=== PATIENT | female | born 1945 | race Hispanic/Latino ===

== ENCOUNTER 2017-05-04 09:57 | Inpatient (IN) | payer MEDICARE, BC ==
[2017-05-04 10:42] VITALS: BMI 26.0
--- NOTE | 2017-05-04 10:42 | ED PDOC ---
Arrival/HPI - General Historian: Patient - History of Present Illness Time/Duration: > week, < month Symptom Onset: Gradual Symptom Course: Unchanged Context: Exertion <Bernardino Mcnair - Last Filed: 05/04/17 11:37> <Oh Peters - Last Filed: 05/04/17 12:58> - General Chief Complaint: Shortness Of Breath Time Seen by Provider: 05/04/17 10:02 - History of Present Illness Narrative History of Present Illness (Text): 05/04/17 10:37 patient is a 67F with a past medical history of an DC in 2016 where there was a stent placed in the LAD. She comes with a CC of exertional dyspnea for 2 weeks. States that she can only walk one block before becoming SOB requiring her to stop and rest. She states she is also complaining of R. thigh pain when walking that is resolved with rest. She denies any chest pain. No radiation. The SOB has been constant for 2 weeks. No nausea or vomiting, No diaphoresis. (Bernardino Mcnair) Past Medical History - Cardiac Hx Cardiac Disorders: Yes Hx DC: Yes Hx Pacemaker: No - Pulmonary Hx Respiratory Disorders: No - Neurological Hx Neurological Disorder: No Hx Paralysis: No - HEENT Hx HEENT Disorder: No - Renal Hx Renal Disorder: No - Endocrine/Metabolic Hx Endocrine Disorders: Yes Other/Comment: Thyroid cancer 30 years ago - Hematological/Oncological Hx Blood Disorders: Yes Hx Anemia: Yes Hx Blood Transfusions: Yes Hx Blood Transfusion Reaction: No Hx Shingles: Yes (04/2017) - Integumentary Hx Dermatological Disorder: No - Musculoskeletal/Rheumatological Hx Musculoskeletal Disorders: No - Gastrointestinal Hx Gastrointestinal Disorders: No - Genitourinary/Gynecological Hx Genitourinary Disorders: No - Psychiatric Hx Psychophysiologic Disorder: No Hx Emotional Abuse: No Hx Physical Abuse: No Hx Substance Use: No - Surgical History Hx Cardiac Catheterization: Yes Hx Coronary Stent: Yes Hx Thyroidectomy: Yes - Anesthesia Hx Anesthesia Reactions: No Hx Malignant Hyperthermia: No - Suicidal Assessment Feels Threatened In Home Enviroment: No <Bernardino Mcnair - Last Filed: 05/04/17 11:37> Family/Social History Family/Social History: Unknown Family HX Smoking Status: Former Smoker Hx Alcohol Use: Yes (WINE SOCIAL) Hx Substance Use: No <Bernardino Mcnair - Last Filed: 05/04/17 11:37> Allergies/Home Meds <Bernardino Mcnair - Last Filed: 05/04/17 11:37> <DaxanoelleOh - Last Filed: 05/04/17 12:58> Allergies/Adverse Reactions: Allergies No Known Allergies Allergy (Verified 05/04/17 10:18) Home Medications: Home Meds Medication Instructions Recorded Confirmed Levothyroxine [Synthroid] 125 mcg PO QAM 01/03/16 05/04/17 Pantoprazole Sodium [Protonix] 40 mg PO QAM 01/14/16 05/04/17 Docusate [Colace] 100 mg PO BID 01/20/16 05/04/17 Prasugrel [Effient] 10 mg PO DAILY 01/20/16 05/04/17 Review of Systems - Review of Systems Constitutional: Normal Eyes: Normal ENT: Normal Respiratory: SOB. absent: Cough Cardiovascular: absent: Chest Pain, Palpitations, Syncope Gastrointestinal: absent: Abdominal Pain, Diarrhea, Nausea, Vomiting Genitourinary Female: Normal Musculoskeletal: Normal Skin: Normal Neurological: Normal Endocrine: Normal Hemo/Lymphatic: Normal Psychiatric: Normal <IvannaBernardino moore - Last Filed: 05/04/17 11:37> Physical Exam Temperature: Afebrile Blood Pressure: Hypertensive Pulse: Regular Respiratory Rate: Normal Appearance: Positive for: Well-Appearing, Non-Toxic, Comfortable Pain Distress: None Mental Status: Positive for: Alert and Oriented X 3 - Systems Exam Head: Present: Atraumatic, Normocephalic Pupils: Present: PERRL Extroacular Muscles: Present: EOMI Conjunctiva: Present: Normal Mouth: Present: Moist Mucous Membranes Neck: Present: Normal Range of Motion Respiratory/Chest: Present: Clear to Auscultation, Good Air Exchange. No: Respiratory Distress, Accessory Muscle Use Cardiovascular: Present: Regular Rate and Rhythm, Murmurs. No: Normal S1, S2 Abdomen: Present: Tenderness, Normal Bowel Sounds. No: Distention, Peritoneal Signs Upper Extremity: Present: Normal Inspection, Cyanosis. No: Edema Lower Extremity: Present: Normal Inspection. No: Edema Neurological: Present: GCS=15, CN II-XII Intact, Speech Normal Skin: Present: Warm, Dry, Normal Color. No: Rashes Psychiatric: Present: Alert, Oriented x 3, Normal Insight, Normal Concentration <Bernardino Mcnair - Last Filed: 05/04/17 11:37> Vital Signs Temp Resp BP 05/04/17 10:25 18 05/04/17 10:19 97.7 F 18 181/79 H Medical Decision Making <Bernardino Mcnair - Last Filed: 05/04/17 11:37> - Lab Interpretations I have reviewed the lab results: Yes - RAD Interpretation Keno Writer: ED Physician (CXR no acute) - EKG Interpretation Interpreted by ED Physician: Yes Type: 12 lead EKG (NSR) <Oh Peters - Last Filed: 05/04/17 12:58> ED Course and Treatment: 05/04/17 10:45 Patient complaining of SOB and leg pain. No chest pain - cbc, cmp - US of LE - EKG 05/04/17 11:38 US LE negative Anemic @ 6.6 - transfuse [address] Patel, Admit. Consult GI, Pulm, and Cards (Luis MigueldianneBernardino moore) - Lab Interpretations Lab Results: 05/04/17 10:40 05/04/17 10:40 Lab Results 05/04/17 11:35: Blood Type Pending, Antibody Screen Pending, Crossmatch See Detail, BBK History Checked Patient has bt 05/04/17 10:40: Sodium 144, Potassium 4.2, Chloride 109 H, Carbon Dioxide 21, Anion Gap 17, BUN 19, Creatinine 1.2, Est GFR ( Amer) 53, Est GFR (Non- Af Amer) 44, Random Glucose 119 H, Calcium 9.5, Magnesium 2.0, Total Bilirubin 0.4, AST 27, ALT 19, Alkaline Phosphatase 53, Lactate Dehydrogenase 579, Total Creatine Kinase 65, Troponin I 0.03 D, NT-Pro-B Natriuret Pep 1650 H, Total Protein 7.5, Albumin 4.3, Globulin 3.2, Albumin/Globulin Ratio 1.4 05/04/17 10:40: WBC 7.5, RBC 2.10 L, Hgb 6.6 L*, Hct 22.3 L, MCV 106.2 H, MCH 31.4, MCHC 29.6 L, RDW 22.6 H, Plt Count 267, MPV 10.1, Gran % 72.2 H, Lymph % ( Auto) 14.4 L, [place] % (Auto) 5.2, Eos % (Auto) 7.7 H, Baso % (Auto) 0.5, Gran # 5.40, Lymph # (Auto) 1.1 L, [place] # (Auto) 0.4, Eos # (Auto) 0.6, Baso # (Auto) 0.04 - RAD Interpretation Radiology Orders: 05/04/17 10:35 DUPLEX LOWER EXTRM VEIN BILAT [US] Stat 05/04/17 11:10 CHEST PORTABLE [RAD] Stat - Medication Orders Current Medication Orders: Atorvastatin Calcium (Lipitor) 20 mg PO DIN DL Carvedilol (Coreg) 3.125 mg PO BID DL Ferrous Sulfate (Feosol) 324 mg PO BID DL Levothyroxine Sodium (Synthroid) 125 mcg PO QAM DL Pantoprazole Sodium (Protonix Ec Tab) 40 mg PO QAM DL Prasugrel (Effient) 10 mg PO DAILY DL - PA / PARAFFINER / Resident Statement MD/DO has reviewed & agrees with the documentation as recorded. / has examined the patient and agrees with the treatment plan. <Bernardino Mcnair - Last Filed: 05/04/17 11:37> Disposition/Present on Arrival - Present on Arrival Any Indicators Present on Arrival: No History of DVT/PE: No History of Uncontrolled Diabetes: No Urinary Catheter: No History of Decub. Ulcer: No History Surgical Site Infection Following: None - Disposition Have Diagnosis and Disposition been Completed?: Yes Disposition Time: 11:37 Patient Plan: Admission <Bernardino Mcnair - Last Filed: 05/04/17 11:37> <Oh Peters - Last Filed: 05/04/17 12:58> - Disposition Diagnosis: Anemia, Dyspnea Disposition: HOSPITALIZED Condition: GUARDED Forms: [employer] (Indonesian)
[2017-05-04 10:46] LABS: BASO # 0.04 K/mm3 (0.0-2.0); BASO % 0.5 % (0.0-3.0); EOS # 0.6 (0.0-0.7); EOS % 7.7 % (1.5-5.0); GRAN # 5.4 (1.4-6.5); GRAN % 72.2 % (50.0-68.0); LYMPH # 1.1 (1.2-3.4); LYMPH % 14.4 % (22.0-35.0); MEAN CELL VOLUME 106.2 fl (80.0-105.0); MEAN CORPUSCULAR HEMOGLOBIN 31.4 pg (25.0-35.0); MEAN CORPUSCULAR HGB CONC 29.6 g/dl (31.0-37.0); MEAN PLATELET VOLUME 10.1 fl (7.0-11.0); MONO # 0.4 (0.1-0.6); MONO % 5.2 % (1.0-6.0); RBC 2.1 10^6/uL (3.5-6.1); RED CELL DISTRIBUTION WIDTH 22.6 % (11.5-14.5); WHITE BLOOD COUNT 7.5 10^3/ul (4.5-11.0)
[2017-05-04 10:52] LABS: HEMOGLOBIN 6.6 g/dL (12.0-16.0)
[2017-05-04 10:56] LABS: ALB/GLOB RATIO 1.4 (1.1-1.8); ALBUMIN 4.3 g/dL (3.0-4.8); CALCIUM 9.5 mg/dL (8.4-10.5)
[2017-05-04 11:08] LABS: TROPONIN I 0.03 ng/mL
--- NOTE | 2017-05-04 13:52 | RAD ---
HISTORY: 71yoF, sob COMPARISON: 01/26/2016 FINDINGS: LUNGS: No active pulmonary disease. PLEURA: No significant pleural effusion identified, no pneumothorax apparent. CARDIOVASCULAR: Cardiomegaly. No evidence of acute, significant cardiovascular disease. OSSEOUS STRUCTURES: No significant abnormalities. VISUALIZED UPPER ABDOMEN: Normal. OTHER FINDINGS: None. IMPRESSION: No active disease. No significant interval change compared to the prior examination(s).
[2017-05-04] MEDS ORDERED: Pneumococcal 23-Valent Vaccine IM ONE (16:53)
[2017-05-04] MEDS ORDERED: Influenza Vaccine 60 mcg/0.5 mL SYR (4YR UP) IM ONE (16:53)
[2017-05-04 17:27] LABS: ARTERIAL BLOOD GAS HCO3 22.2 mmol/L (21-28); ARTERIAL BLOOD GAS HEMOGLOBIN 6.9 g/dL (11.7-17.4); ARTERIAL BLOOD GAS O2 CAPACITY 9.7 mL/dl (16-24); ARTERIAL BLOOD GAS O2 CONTENT 9.6 ML/dl (15-23); ARTERIAL BLOOD GAS O2 SAT 98.6 % (95-98); ARTERIAL BLOOD GAS PCO2 32 mm/Hg (35-45); ARTERIAL BLOOD GAS PH 7.45 (7.35-7.45); ARTERIAL BLOOD GAS TCO2 23.2 mmol.L (22-28)
[2017-05-04] MEDS ORDERED: Morphine 2 mg/ml ISec IVP PRN ×2 (18:32→18:37)
[2017-05-04] MEDS: Morphine 4 mg/ml ISec IVP PRN (18:58)
--- NOTE | 2017-05-04 19:24 | CARD ---
APPROVED REPORT EKG Measurement Heart [id number] MA [id number] <Conclusion> Normal sinus rhythm Minimal voltage criteria for LVH, may be normal variant Inferior infarct, age undetermined Abnormal ECG
--- NOTE | 2017-05-04 20:07 | US ---
HISTORY: Leg pain and swelling. Evaluate for DVT PHYSICIAN(S): Quentin Lira MD. TECHNIQUE: Duplex sonography and color-flow Doppler with graded compression were used to evaluate the deep venous systems of both lower extremities. FINDINGS: The visualized deep venous systems of both lower extremities are sonographically normal and compressible. Normal wave forms and augmentation are seen. There is no sonographic evidence for deep venous thrombosis in the visualized segments of both lower extremities. There is a lobulated 3.4 x 3.9 cm fluid collection in the right popliteal fossa, consistent with a Bethea's cyst. IMPRESSION: No sonographic evidence for deep venous thrombosis in the visualized segments of both lower extremities.
[2017-05-05] MEDS: Morphine 4 mg/ml ISec IVP PRN ×2 (01:17→06:55)
--- NOTE | 2017-05-05 01:19 | CON ---
DATE: 05/04/2017 CARDIOLOGY CONSULTATION HISTORY OF PRESENT ILLNESS: The patient is a 71-year-old woman who presents with 2 weeks of exertional shortness of breath. She was found to have a hemoglobin of 6.7. PAST MEDICAL HISTORY: Includes documented anemia in the past where her workup was included an endoscopy and colonoscopy revealed no source of bleeding. She underwent PTCA and stent of a 90% LAD in January of last year. Her past medical history also includes an old inferior wall WA documented by an occluded RCA. In addition, her cardiac risk factors includes hypercholesterolemia as well as COPD. She has stopped smoking since her angioplasty. SOCIAL HISTORY: As above. REVIEW OF SYSTEMS: 14-point review of systems was reviewed. No angina. Positive exertional shortness of breath. Negative edema. Negative dark stools. Negative bright red blood per rectum. No nausea, no vomiting. PHYSICAL EXAMINATION: VITAL SIGNS: Stable. Blood pressure 145/82, heart rates in the 60s. NECK: Negative JVD. LUNGS: Without rales. HEART: S1, S2. EXTREMITIES: Without edema. EKG shows normal sinus rhythm with an old inferior wall WA. LABORATORY DATA: Hemoglobin is 6.6, white count is normal. BUN and creatinine unremarkable. ProBNP is 1650. IMPRESSION: 1. Marked anemia. 2. Need to rule out gastrointestinal bleed. 3. Exertional dyspnea. 4. History of percutaneous transluminal coronary angioplasty and 90% LAD stenoses with a drug-eluting stent in January of last year. 5. Old inferior wall myocardial infarction. 6. Hypertension. 7. Chronic obstructive pulmonary disease. Given these findings, the patient will need to be transfused, which has been ordered. GI consult has been ordered. We will need to follow her hemoglobin. Quentin Wood MD
--- NOTE | 2017-05-05 04:06 | HP ---
HISTORY OF PRESENT ILLNESS: I was called to the Emergency Room to visit her. She came to the Emergency Room with exertional dyspnea for 2 weeks. She can only walk a block before she became short of breath, and she had to stop. She was not feeling well. PAST MEDICAL HISTORY: She has a past medical history of an OR in 2016, had a stent placed in the LAD. She also has history of thyroid cancer 30 years ago, anemia, she had transfusions in the past. She had shingles, she has it again now, I will put her on Valtrex. She has coronary stent, thyroidectomy surgery. FAMILY HISTORY: She has hypertension in the family. SOCIAL HISTORY: Former smoker. She still drinks wine. No drug abuse. ALLERGIES: NO KNOWN DRUG ALLERGIES. MEDICATIONS: She is on Synthroid, Protonix, Colace, and Effient. REVIEW OF SYSTEMS: No acute vision or hearing changes. No sore throat. She is short of breath. No cough. No chest pain or palpitations or syncope. No abdominal pain, nausea, vomiting, constipation, or diarrhea. No skin issues. No rashes or ulcers that she knows of. Little bit nervous. No sweating. No tremors. PHYSICAL EXAMINATION VITAL SIGNS: She has a 97.7 temperature, 18 pulse, 181/79 blood pressure. GENERAL: She is well appearing, comfortable at rest, but cannot walk more than 4 to 5 steps without becoming short of breath. She is alert and oriented x3. HEENT: Head is atraumatic, normocephalic. Extraocular muscles are intact. Pupils are equal and reactive to light and accommodation. Throat is moist. NECK: Supple. HEART: Regular rate. Normal S1 and S2. LUNGS: Clear to auscultation bilaterally. No wheezes, rhonchi, or rales. ABDOMEN: Soft, nontender. No guarding, no rebound, no CVA tenderness. EXTREMITIES: No leg edema. NEUROLOGIC: GCS is 15. Cranial nerves II through XII grossly intact. Normal speech. SKIN: Warm and dry. No apparent rashes or ulcers appreciated. LYMPHATICS: Thyroid is not there, she had a thyroidectomy. No palpable appreciable lymphadenopathy. LABORATORY DATA: She has multiple tests done. She has 144 sodium, potassium 4.2, BUN , creatinine 1.2, GFR is 44, sugar is 119, calcium is 9.5, magnesium 2, total bili is 0.4, AST is 27, ALT is 19, .alkaline phosphatase is 53. Lactate dehydrogenase is 579, total creatine kinase is 65. Troponin I is 0.03. BNP is 1650. Total protein is 7.5. White count 7.5 , hemoglobin 6.6, hematocrit 22.3, platelets are 267. She has a chest x-ray with no acute disease. ASSESSMENT AND PLAN: We are going to transfuse 2 units of packed red blood cells, with Lasix 40 IV in between. She also has consults with Pulmonary, Cardiology, and GI. Has occult blood pending. She is n.p.o. Order physical therapy. We will be checking her labs tomorrow, and she is here for acute anemia, dyspnea on exertion, and shortness of breath. Jasvir Patel DO MTDD
[2017-05-05 07:12] LABS: HEMOGLOBIN 10.3 g/dL (12.0-16.0); MEAN CELL VOLUME 96.2 fl (80.0-105.0); MEAN CORPUSCULAR HEMOGLOBIN 30.4 pg (25.0-35.0); MEAN CORPUSCULAR HGB CONC 31.6 g/dl (31.0-37.0); MEAN PLATELET VOLUME 10.1 fl (7.0-11.0); RBC 3.39 10^6/uL (3.5-6.1); RED CELL DISTRIBUTION WIDTH 23.8 % (11.5-14.5); WHITE BLOOD COUNT 6.8 10^3/ul (4.5-11.0)
[2017-05-05 07:41] LABS: ALB/GLOB RATIO 1.3 (1.1-1.8); ALBUMIN 4.5 g/dL (3.0-4.8); CALCIUM 9.5 mg/dL (8.4-10.5)
[2017-05-05 07:51] LABS: IRON 43 ug/dL (45-180)
[2017-05-05 08:00] LABS: % IRON SATURATION 10 % (20-55); TOTAL IRON BINDING CAPACITY 423 ug/dL (265-497)
--- NOTE | 2017-05-05 08:00 | CP.PCM.CON ---
<Dale Brantley - Last Filed: 05/05/17 08:58> History of Present Illness - History of Present Illness History of Present Illness: PGY5 GI Fellow Consult Note Patient is a 66yo female with PMHx significant for thyroid cancer s/p partial resection, CAD s/p PCI to LAD on Effient, iron deficiency anemia who presented to the ED with worsening fatigue and shortness of breath. She states that over the last 1-2 weeks she has noticed progressively worsening fatigue and dyspnea on exertion. Symptoms became severe enough that she came to the ED for further evaluation and was noted to have a HGB of 6.6 on CBC. Patient received 2 units PRBCs and repeat CBC is pending. Currently, she denies any hematochezia, melena , weight loss, nausea, vomiting, fever, chills. Separately, she developed a painful burning/stabbing rash on the left flank 2 weeks ago and admits pain has worsened in this time frame. She has been using Alleve/Advil regularly to treat pain with modest relief. Of note, patient was previously admitted in December/ January 2016 with similar complaints and had suffered with iron deficiency anemia at that time as well. At that time she admitted to heavy NSAID use and rectal bleeding however, EGD/Colonoscopy did not reveal a source of blood loss. PMHx: Thyroid cancer (unknown type), acquired hypothyroidism following thyroid resection PSHx: Partial thyroid resection (~1989), PCI to LAD (2015) FHx: Father - bladder cancer; son and grandson with anemia Social: Former smoker, daily EtOH use (1-2 cocktails/day), denies illicit drug use Endo: 12/2015 - EGD/Colonoscopy - small hiatal hernia; 4 hyperplastic polyps, diverticulosis, internal hemorrhoids 01/2016 - EGD/EUS - Unremarkable 12 system ROS performed and negative except where stated above. Past Patient History - Past Social History Smoking Status: Former Smoker - CARDIAC Hx Cardiac Disorders: Yes (mi 01/2016) Hx Hypercholesterolemia: Yes Hx Hypertension: Yes Hx Pacemaker: No Other/Comment: cardiac rehab, angioplasty 01/2017 - PULMONARY Hx Respiratory Disorders: Yes Hx Bronchitis: Yes - NEUROLOGICAL Hx Neurological Disorder: No - HEENT Hx HEENT Problems: No - RENAL Hx Chronic Kidney Disease: No - ENDOCRINE/METABOLIC Hx Endocrine Disorders: Yes Hx Hypothyroidism: Yes Other/Comment: Thyroid cancer 35 years ago, left partial thyroidectomy no chemo no radiation - HEMATOLOGICAL/ONCOLOGICAL Hx Blood Disorders: Yes Hx Anemia: Yes (blood transfusions) Hx Cancer: Yes (thyroid/partial L thyroidectomy 35 yrs ago) Hx Chemotherapy: No (no chemo no radiation) Hx Shingles: Yes (04/2017 left flank dry red pustules) Other/Comment: anemia and blood transfusions 01/2016 - INTEGUMENTARY Hx Dermatological Problems: Yes Other/Comment: dry red pustules left flank +shingles sharp pain to site x 2 1/2 wks - MUSCULOSKELETAL/RHEUMATOLOGICAL Hx Falls: Yes (fell 12 or 14 yrs ago) - GASTROINTESTINAL Hx Gastrointestinal Disorders: Yes (gastritis, gi bleed) Other/Comment: pt stated 'They told me I had a tear in my intestine but they never did anything about it.", egd 01/2016 dx duodenitis - GENITOURINARY/GYNECOLOGICAL Hx Genitourinary Disorders: No - PSYCHIATRIC Hx Substance Use: No - SURGICAL HISTORY Hx Surgeries: Yes Hx Cardiac Catheterization: Yes (02/03/16) Hx Coronary Stent: Yes (02/03/16) Other/Comment: r humerus fx sx insertion of 1 or 2 rodds 12 or 14 yrs ago pt tripped over the belt to her robe, left thyroidectomy 35 yrs ago - ANESTHESIA Hx Anesthesia Reactions: No Hx Malignant Hyperthermia: No Meds Allergies/Adverse Reactions: Allergies Allergy/AdvReac Type Severity Reaction Status Date / Time No Known Allergies Allergy Verified 05/04/17 10:18 - Medications Medications: Current Medications Atorvastatin Calcium (Lipitor) 20 mg PO DIN REPLACED BY [facility] Last Admin: 05/04/17 18:40 Dose: Not Given Carvedilol (Coreg) 3.125 mg PO BID REPLACED BY [facility] Last Admin: 05/04/17 18:38 Dose: 3.125 mg Ferrous Sulfate (Feosol) 324 mg PO BID REPLACED BY [facility] Last Admin: 05/04/17 18:39 Dose: Not Given Levothyroxine Sodium (Synthroid) 125 mcg PO [facility] Morphine Sulfate (Morphine) 2 mg IVP Q4H PRN PRN Reason: Pain, moderate (4-7) Morphine Sulfate (Morphine) 2 mg IVP Q4H PRN PRN Reason: Pain, moderate (4-7) Last Admin: 05/05/17 06:55 Dose: 2 mg Pantoprazole Sodium (Protonix Ec Tab) 40 mg PO QAM REPLACED BY [facility] Valacyclovir HCl (Valtrex) 500 mg PO BID REPLACED BY [facility] PRN Reason: Protocol Last Admin: 05/04/17 18:41 Dose: Not Given Physical Exam - Constitutional Appears: Non-toxic, No Acute Distress - Eye Exam Eye Exam: EOMI, PERRL - ENT Exam ENT Exam: Mucous Membranes Moist - Respiratory Exam Respiratory Exam: Clear to Auscultation Bilateral. absent: Rales, Rhonchi, Wheezes - Cardiovascular Exam Cardiovascular Exam: RRR, +S1, +S2 - GI/Abdominal Exam GI & Abdominal Exam: Normal Bowel Sounds, Soft. absent: Distended, Firm, Guarding, Mass, Organomegaly, Rigid, Tenderness - Extremities Exam Extremities exam: Positive for: normal inspection. Negative for: pedal edema - Neurological Exam Neurological exam: Alert, Oriented x3 - Psychiatric Exam Psychiatric exam: Normal Affect, Normal Mood - Skin Skin Exam: Dry, Rash (left flank c/w shingles), Warm Results - Vital Signs Recent Vital Signs: Last Vital Signs Temp 98.6 F 05/05/17 05:43 Pulse 61 05/05/17 05:43 Resp 19 05/05/17 05:43 BP 158/84 H 05/05/17 05:43 Pulse Ox 94 L 05/05/17 05:43 - Labs Result Diagrams: 05/05/17 06:30 05/05/17 06:30 Labs: Laboratory Results - last 24 hr 05/04/17 05/05/17 05/05/17 17:24 06:30 06:30 WBC 6.8 RBC 3.39 L Hgb 10.3 L D Hct 32.6 L MCV 96.2 D MCH 30.4 MCHC 31.6 RDW 23.8 H Plt Count 246 MPV 10.1 pCO2 32 L pO2 125.0 H HCO3 22.2 ABG pH 7.45 ABG Total CO2 23.2 ABG O2 Saturation 98.6 H ABG O2 Content 9.6 L ABG Base Excess -1.6 ABG Hemoglobin 6.9 L ABG Carboxyhemoglobin 2.0 H POC ABG HHb (Measured) 1.4 ABG Methemoglobin 0.8 ABG O2 Capacity 9.7 L Hgb O2 Saturation 95.8 FiO2 28.0 Sodium 144 Potassium 3.9 Chloride 105 Carbon Dioxide 24 Anion Gap 18 BUN 18 Creatinine 1.2 Est GFR ( Amer) 53 Est GFR (Non-Af Amer) 44 Random Glucose 105 Calcium 9.5 Iron Total Bilirubin 0.6 AST 38 H D ALT 20 Alkaline Phosphatase 67 Total Protein 8.0 Albumin 4.5 Globulin 3.5 Albumin/Globulin Ratio 1.3 05/05/17 07:40 WBC RBC Hgb Hct MCV MCH MCHC RDW Plt Count MPV pCO2 pO2 HCO3 ABG pH ABG Total CO2 ABG O2 Saturation ABG O2 Content ABG Base Excess ABG Hemoglobin ABG Carboxyhemoglobin POC ABG HHb (Measured) ABG Methemoglobin ABG O2 Capacity Hgb O2 Saturation FiO2 Sodium Potassium Chloride Carbon Dioxide Anion Gap BUN Creatinine Est GFR ( Amer) Est GFR (Non-Af Amer) Random Glucose Calcium Iron 43 L Total Bilirubin AST ALT Alkaline Phosphatase Total Protein Albumin Globulin Albumin/Globulin Ratio Assessment & Plan - Assessment and Plan (Free Text) Assessment: Patient is a 66yo female with PMHx significant for thyroid cancer s/p partial resection, CAD s/p PCI to LAD on Effient, iron deficiency anemia who presented to the ED with worsening fatigue and shortness of breath -Iron deficiency anemia -Herpes zoster infection -CAD s/p PCI to LAD on Effient Plan: -Patient would likely benefit from hematology consultation given ongoing DERREK and previously unremarkable endoscopic evaluations -Check iron panel, ferritin and consider IV iron supplementation if low -Patient would benefit from repeat colonoscopy given poor prep > 1year ago - encouraged to follow up outpatient to schedule this -If repeat endoscopic eval negative, consider capsule endoscopy to rule out small bowel lesions -No active GI bleeding at this time -PPI prophylaxis while using pain medications to treat Herpes zoster infection -OK to advance diet as tolerated Discussed with Dr Ham - Date & Time Date: 05/05/17 Time: 07:15 <Vinicius Ham - Last Filed: 05/05/17 09:40> Meds - Medications Medications: Current Medications Atorvastatin Calcium (Lipitor) 20 mg PO DIN REPLACED BY [facility] Last Admin: 05/04/17 18:40 Dose: Not Given Carvedilol (Coreg) 3.125 mg PO BID REPLACED BY [facility] Last Admin: 05/04/17 18:38 Dose: 3.125 mg Ferrous Sulfate (Feosol) 324 mg PO BID REPLACED BY [facility] Last Admin: 05/04/17 18:39 Dose: Not Given Levothyroxine Sodium (Synthroid) 125 mcg PO QAM REPLACED BY [facility] Morphine Sulfate (Morphine) 2 mg IVP Q4H PRN PRN Reason: Pain, moderate (4-7) Morphine Sulfate (Morphine) 2 mg IVP Q4H PRN PRN Reason: Pain, moderate (4-7) Last Admin: 05/05/17 06:55 Dose: 2 mg Pantoprazole Sodium (Protonix Ec Tab) 40 mg PO QAM REPLACED BY [facility] Valacyclovir HCl (Valtrex) 500 mg PO BID DL PRN Reason: Protocol Last Admin: 05/04/17 18:41 Dose: Not Given Results - Vital Signs Recent Vital Signs: Last Vital Signs Temp 98.6 F 05/05/17 05:43 Pulse 61 05/05/17 05:43 Resp 19 05/05/17 05:43 BP 158/84 H 05/05/17 05:43 Pulse Ox 94 L 05/05/17 05:43 - Labs Result Diagrams: 05/05/17 06:30 05/05/17 06:30 Labs: Laboratory Results - last 24 hr 05/04/17 05/05/17 05/05/17 17:24 06:30 06:30 WBC 6.8 RBC 3.39 L Hgb 10.3 L D Hct 32.6 L MCV 96.2 D MCH 30.4 MCHC 31.6 RDW 23.8 H Plt Count 246 MPV 10.1 pCO2 32 L pO2 125.0 H HCO3 22.2 ABG pH 7.45 ABG Total CO2 23.2 ABG O2 Saturation 98.6 H ABG O2 Content 9.6 L ABG Base Excess -1.6 ABG Hemoglobin 6.9 L ABG Carboxyhemoglobin 2.0 H POC ABG HHb (Measured) 1.4 ABG Methemoglobin 0.8 ABG O2 Capacity 9.7 L Hgb O2 Saturation 95.8 FiO2 28.0 Sodium 144 Potassium 3.9 Chloride 105 Carbon Dioxide 24 Anion Gap 18 BUN 18 Creatinine 1.2 Est GFR ( Amer) 53 Est GFR (Non-Af Amer) 44 Random Glucose 105 Calcium 9.5 Iron TIBC % Saturation Total Bilirubin 0.6 AST 38 H D ALT 20 Alkaline Phosphatase 67 Total Protein 8.0 Albumin 4.5 Globulin 3.5 Albumin/Globulin Ratio 1.3 05/05/17 07:40 WBC RBC Hgb Hct MCV MCH MCHC RDW Plt Count MPV pCO2 pO2 HCO3 ABG pH ABG Total CO2 ABG O2 Saturation ABG O2 Content ABG Base Excess ABG Hemoglobin ABG Carboxyhemoglobin POC ABG HHb (Measured) ABG Methemoglobin ABG O2 Capacity Hgb O2 Saturation FiO2 Sodium Potassium Chloride Carbon Dioxide Anion Gap BUN Creatinine Est GFR ( Amer) Est GFR (Non-Af Amer) Random Glucose Calcium Iron 43 L TIBC 423 % Saturation 10 L Total Bilirubin AST ALT Alkaline Phosphatase Total Protein Albumin Globulin Albumin/Globulin Ratio Attending/Attestation - Attestation I have personally seen and examined this patient.: Yes I have fully participated in the care of the patient.: Yes I have reviewed all pertinent clinical information: Yes Notes (Text): 05/05/17 09:39 71 year old female with h/o CAD on effient with iron deficiency anemia. She has had prior egd/colonoscopy, without obvious source. s/p transfusion now. Would recommend outpatient capsule endoscopy to evaluate for small bowel avms. Recommend repeat outpatient colonoscopy due to poor prep. Ok for discharge from GI standpoint.
--- NOTE | 2017-05-05 09:13 | CON ---
DATE: 05/05/2017 PULMONARY CONSULTATION REASON FOR CONSULTATION: Dyspnea on exertion. REFERRING PHYSICIAN: Jasvir Patel DO. HISTORY OF PRESENT ILLNESS: The patient is a 71-year-old female, with past medical history significant for coronary artery disease, status post myocardial infarction in 2016, status post cardiac stent and anemia, who presents to [facility] with main complaint of shortness of breath on exertion for the past 2 weeks. The patient is not short of breath at rest. There is no history of cough or sputum production. There is no history of chest pain, coughing up of blood, or chest pain-made worse with deep respirations. There is no history of temperatures, chills or infectious exposure. There is no history of night sweats, weight loss or appetite change prior to the above events. No history of leg or calf pains. No history of syncope or diaphoresis. No history of recent travel or trauma. REVIEW OF SYSTEMS: No history of nausea, vomiting or diarrhea. No acute urinary symptoms. No new neurologic or musculoskeletal complaints. Rest of the review of systems is negative. ALLERGIES: NO KNOWN ALLERGIES. SOCIAL HISTORY: Positive for tobacco usage for many years-stopped in 2016. No alcohol. FAMILY HISTORY: Positive for hypertension. HOME MEDICATIONS: Include Effient, Protonix, Synthroid, Feosol, Colace, Coreg and Lipitor. PHYSICAL EXAMINATION: GENERAL: The patient appears quite comfortable at rest. She is not short of breath. She is not using accessory muscles for breathing. VITAL SIGNS: Temperature is 98.6, pulse is 61, respirations 19, blood pressure 158/84. Oxygen saturation on room air is between 94%-100%. HEENT: Normocephalic, atraumatic. NECK: No JVD. CARDIOVASCULAR: Positive S1, S2. No S3 gallop. LUNGS: Clear bilaterally. EXTREMITIES: No clubbing, cyanosis or edema. Calves are nontender to palpation. GI: Abdomen is soft, nontender and nondistended. Bowel sounds are positive. SKIN: No acute rash. NEUROLOGIC: Exam limited at the present time. PERTINENT LABORATORY DATA: Chest x-ray was done and reviewed. There is no active pulmonary disease noted. There is cardiomegaly noted. CBC: White count 7.5, hemoglobin 6.6, hematocrit 22.3, platelets of 267, 000. Arterial blood gas was done on 2 L nasal cannula. Results are: PH 7.45, pCO2 of 32, pO2 of 125. Complete metabolic profile: Chloride 109, glucose 119. B-type natriuretic peptide 1650. Rest of the metabolic profile is within normal limits. IMPRESSION: 1. Dyspnea on exertion. 2. Coronary artery disease. 3. Severe anemia. 4. Increased B-type natriuretic peptide. 5. Rule out chronic obstructive pulmonary disease--positive former smoker. PLAN: The patient presents to [facility] with a 2-week history of dyspnea on exertion. She offers no other pulmonary symptoms. I did review the chest x-ray as above. The chest x-ray is not significantly changed from the film of 01/26/2016. The chest x-ray does show cardiomegaly. On physical exam, the patient's lungs are clear. Oxygen saturation on room air is 94%-100%. I have also reviewed the arterial blood gas. The arterial blood gas reveals a normal pH, with no significant alveolar-arterial gradient. As above, the patient was a long-term smoker. I will obtain a pulmonary function test--to adequately assess her respiratory status. It is certainly possible that the patient has underlying chronic obstructive pulmonary disease. Input by Cardiology (Dr. Wood) is noted. I would also like to obtain an echocardiogram- to check the right ventricular systolic pressure-if one was not done recently. Lastly, the severe anemia can certainly lead to dyspnea on exertion. The patient has had a workup in the past. She says that there was something abnormal seen on her colonoscopy in the past. Gastroenterology has been consulted on the case. Additional pulmonary intervention will be based on the above results, as well as the clinical status of the patient. I will discuss the above with Dr. Patel. Thank you very much for this pulmonary consultation. Vinh Bess MD [facility]
[2017-05-05] MEDS ORDERED: Pantoprazole 40 mg EC Tab PO SCH (10:00)
[2017-05-05] MEDS ORDERED: Levothyroxine 125 MCG TAB PO SCH (10:00)
[2017-05-05 11:06] VITALS: BP 158/84; PULSE 55; O2SAT 94
[2017-05-05 11:14] VITALS: RESP 19; TEMP 98.6
--- NOTE | 2017-05-05 15:09 | PN ---
DATE: 05/05/2017 CARDIOLOGY FOLLOWUP SUBJECTIVE: The patient is breathing better after transfusion. No chest pain noted. PHYSICAL EXAMINATION: VITAL SIGNS: Blood pressure is 158/84, the heart rates in the 50s. NECK: Negative JVD. LUNGS: Without rales. HEART: With S1, S2. EXTREMITIES: Without edema. LABORATORY DATA: Hemoglobin is up to 10.3 from 6.6. Chemistries, BUN and creatinine unremarkable. IMPRESSION: 1. Resolution of dyspnea post transfusion. 2. Hemoglobin is much improved. 3. History of percutaneous transluminal coronary angioplasty and stent. 4. Coronary artery disease. 5. Hypercholesterolemia. RECOMMENDATIONS: Given these findings, we will restart the patient on a baby aspirin today. Risks, benefit analysis would favor starting her on low-dose aspirin. The patient has had a recent invasive GI workup, which showed no ulcers in the upper endoscopy and none in the lower endoscopy. Therefore, we will restart on baby aspirin. We will follow her hemoglobin and follow up as an outpatient. Quentin Wood MD
--- NOTE | 2017-05-06 05:09 | DS ---
HOSPITAL COURSE: I saw her resting comfortably in bed. She is still having some left-sided shingles pain. There was some Valtrex ordered. got it yet. She was transfused the other day, and GI had seen her. She was also scoped within the past few months. She is on Coreg, Feosol, Lasix, Lipitor, morphine, Protonix, Synthroid, and Valtrex. PHYSICAL EXAMINATION: VITAL SIGNS: Temperature 98.6, 61 pulse, 158/84 blood pressure, 19 respiratory rate, and 94% saturation on room air. HEENT: Head: Atraumatic, normocephalic. HEART: Regular rate. LUNGS: Decreased breath sounds, but clear. ABDOMEN: Soft. Positive bowel sounds. Nontender. EXTREMITIES: No edema. She does have pain allover. She has been seen by Cardiology and GI. I was asked to call Hematology; I will do that. LABORATORY DATA: She has 144 sodium, potassium 3.9, BUN 18, creatinine 1.2, GFR is 44, sugar is 105, calcium is 9.5, iron is 43 low, total iron binding capacity is 423, and percent saturation is 10. I will put her on iron if she is not on it already. Total bilirubin is 0.6, AST is 38, ALT is 29, alkaline phosphatase 57, and total protein is 8. She has 6.8 white count, hemoglobin is up to 10.3 after 2 units, it is great, 32.6 hematocrit, and 246 platelets. MEDICATIONS: She is already on iron, Coreg, Lasix, Lipitor, levothyroxine, and Valtrex. It is very possible she could be discharged if it is okay with Cardiology and GI, and if Hematology sees her, maybe, can follow up as an outpatient, and hopefully I can discharge her later today. She came up with very bad anemia and was transfused. Jasvir Patel DO [email or web address]
--- NOTE | 2017-05-06 05:13 | DS ---
HOSPITAL COURSE: She is resting comfortably in bed. She is status post transfusion. She will be followed up in the outpatient with GI and Hematology and Primary Care. She has got less pain with Valtrex. She has got shingles on the left side. She is eating and feeling a lot better overall. PHYSICAL EXAMINATION: VITAL SIGNS: 98.6 temp, 61 pulse, 158/84 blood pressure, 19 respiratory rate, 94% sat on room air. HEENT: Head is atraumatic, normocephalic. HEART: Regular rate. LUNGS: Decreased breath sounds, but clear. ABDOMEN: Soft, nontender. Positive bowel sounds. No guarding. No rebound. No CVA tenderness. EXTREMITIES: No edema. LABORATORY DATA: She has a 6.8 white count, 10.3 hemoglobin, 32.6 hematocrit with 246 platelets. Sodium 144, potassium 3.9, BUN 18, creatinine 1.2, GFR is 44. PLAN: She will be sent home on Coreg, Feosol, Lipitor, Protonix, Synthroid, and Valtrex. She will see her in my office in a week. She will follow up with GI and Hematology, and she will be discharged today. Jasvir Patel DO
== END 2017-05-05 13:25 | disposition home or self-care (01) | DRG 812 ==
LOC: ED 09:57 → ERH 12:59 → 3RSO 15:18
PROVIDERS: ADMIT Family Medicine; ATTEND Family Medicine
PROC: 30233N1 Transfusion of Nonautologous Red Blood Cells into Peripheral Vein, Percutaneous Approach (ICD-10-PCS; principal; 2017-05-04)
DX: D50.9 Iron deficiency anemia, unspecified (principal); B02.9 Zoster without complications; I25.2 Old myocardial infarction; J44.9 Chronic obstructive pulmonary disease, unspecified; I25.10 Atherosclerotic heart disease of native coronary artery without angina pectoris; I10 Essential (primary) hypertension; E78.00 Pure hypercholesterolemia, unspecified; K44.9 Diaphragmatic hernia without obstruction or gangrene; K64.8 Other hemorrhoids; Z85.850 Personal history of malignant neoplasm of thyroid; Z95.5 Presence of coronary angioplasty implant and graft; Z87.891 Personal history of nicotine dependence

== ENCOUNTER 2017-12-21 08:28 | Inpatient (IN) | payer MEDICARE, BC ==
[2017-12-21 08:47] VITALS: BMI 25.5
--- NOTE | 2017-12-21 09:35 | ED PDOC ---
Arrival/HPI - General Historian: Patient - History of Present Illness Narrative History of Present Illness (Text): 12/21/17 09:30 72 year old female with a past medical history of copd, hypercholesterolemia, anemia, thryoid cancer, cad s/p PCI to LAD on Effient, and myocardial infarction who comes into after being sent in by PMD Dr. Patel. Patient went wasn't feeling well and went to Dr. Patel's office were he got lab results that showed a hemoglobin in the 4 range. Patient was instructed to come in today as a results. Patient does admit to shortness of breath for the past couple of days. Patient denies any chest pain, fevers, chills, nausea, vomiting, abdominal pain, black stools, bright red blood per rectum , or any other complaints. PMD: Dr. Patel PMHx: Thyroid cancer (unknown type), acquired hypothyroidism following thyroid resection PSHx: Partial thyroid resection Social: daily smoker (2-3 cig/day), daily EtOH use (1 glass white wine/day) Time/Duration: < week Symptom Onset: Other Symptom Course: Unchanged Quality: Other Severity Level: 1 Activities at Onset: Other Context: Other <Nicola Hardy - Last Filed: 12/21/17 11:50> <Rian Stern - Last Filed: 12/21/17 12:22> - General Chief Complaint: Abnormal Labs Time Seen by Provider: 12/21/17 08:30 Past Medical History - Provider Review Nursing Documentation Reviewed: Yes - Cardiac Hx Cardiac Disorders: Yes (CABG, cardiac stent) Hx MA: Yes Hx Hypertension: Yes - Pulmonary Hx Respiratory Disorders: Yes Hx Bronchitis: Yes - Neurological Hx Neurological Disorder: No - HEENT Hx HEENT Disorder: No - Renal Hx Renal Disorder: No - Endocrine/Metabolic Hx Hypothyroidism: Yes - Hematological/Oncological Hx Anemia: Yes Hx Blood Transfusions: Yes Hx Blood Transfusion Reaction: No - Integumentary Hx Dermatological Disorder: Yes Other/Comment: shingles - Musculoskeletal/Rheumatological Hx Musculoskeletal Disorders: Yes Hx Falls: Yes Hx Spinal Stenosis: Yes - Gastrointestinal Hx Gastrointestinal Disorders: Yes Other/Comment: GI BLEED - Genitourinary/Gynecological Hx Genitourinary Disorders: No - Psychiatric Hx Psychophysiologic Disorder: No Hx Emotional Abuse: No Hx Physical Abuse: No Hx Substance Use: No - Surgical History Hx Cardiac Catheterization: Yes Hx Coronary Stent: Yes (x1) - Anesthesia Hx Anesthesia Reactions: No Hx Malignant Hyperthermia: No - Suicidal Assessment Feels Threatened In Home Enviroment: No <Nicola Hardy - Last Filed: 12/21/17 11:50> Family/Social History - Physician Review Nursing Documentation Reviewed: Yes Family/Social History: No Known Family HX Smoking Status: Former Smoker Hx Alcohol Use: Yes (social) Hx Substance Use: No <Nicola Hardy - Last Filed: 12/21/17 11:50> Allergies/Home Meds <Nicola Hardy - Last Filed: 12/21/17 11:50> <Rian Stern - Last Filed: 12/21/17 12:22> Allergies/Adverse Reactions: Allergies No Known Allergies Allergy (Verified 12/21/17 11:46) Home Medications: Home Meds Medication Instructions Recorded Confirmed Prasugrel [Effient] 10 mg PO DAILY 01/20/16 12/21/17 Levothyroxine [Synthroid] 200 mcg PO QAM 12/21/17 12/21/17 Review of Systems - Review of Systems Constitutional: Fatigue. absent: Weight Change, Fevers, Night Sweats Eyes: Normal. absent: Vision Changes, Photophobia ENT: Normal. absent: Hearing Changes, Tinnitus, Epistaxis Respiratory: SOB. absent: Normal, Cough Cardiovascular: Normal. absent: Chest Pain, Palpitations, Other Gastrointestinal: Normal. absent: Abdominal Pain, Vomiting, Food Intolerance Genitourinary Female: Normal. absent: Dysuria, Frequency, Vaginal Bleeding Musculoskeletal: Normal. absent: Arthralgias, Back Pain Skin: Normal. absent: Pruritis Neurological: Normal. absent: Headache, Dizziness Endocrine: Normal. absent: Diaphoresis Hemo/Lymphatic: Normal. absent: Adenopathy Psychiatric: Normal. absent: Anxiety <Nicola Hardy - Last Filed: 12/21/17 11:50> Physical Exam Vital Signs Reviewed: Yes Vital Signs Temp Pulse Resp BP Pulse Ox 12/21/17 08:46 98.1 F 84 18 131/80 99 Temperature: Afebrile Blood Pressure: Normal Pulse: Regular Respiratory Rate: Normal Appearance: Positive for: Well-Appearing, Non-Toxic, Comfortable Pain Distress: None Mental Status: Positive for: Alert and Oriented X 3. No: Confused, Agitated - Systems Exam Head: Present: Atraumatic, Normocephalic. No: Abrasion Pupils: Present: PERRL. No: Sluggish Extroacular Muscles: Present: EOMI. No: Gaze Palsy Conjunctiva: Present: Other (Conjunctival pallor ). No: Injected Mouth: Present: Moist Mucous Membranes. No: Dry, Normal Teeth Neck: Present: Normal Range of Motion. No: Meningeal Signs, JVD Respiratory/Chest: Present: Clear to Auscultation, Good Air Exchange. No: Wheezes Cardiovascular: Present: Regular Rate and Rhythm, Normal S1, S2. No: Murmurs, Tachycardic Abdomen: Present: Normal Bowel Sounds. No: Tenderness, McBurney's Point Tender Genitourinary/Pelvic Exam: Present: Other (Refused rectal exam) Upper Extremity: Present: Normal Inspection. No: Cyanosis, Edema, Temperature Abnormalties Lower Extremity: Present: Normal Inspection. No: Edema, Normal ROM Neurological: Present: CN II-XII Intact, Speech Normal. No: Normal Cerebellar Funct, Gait Normal Skin: Present: Dry, Normal Color Psychiatric: Present: Alert, Oriented x 3, Normal Insight <Nicola Hardy - Last Filed: 12/21/17 11:50> Vital Signs Temp Pulse Resp BP Pulse Ox 12/21/17 08:46 98.1 F 84 18 131/80 99 <Rian Stern - Last Filed: 12/21/17 12:22> Medical Decision Making ED Course and Treatment: 12/21/17 09:38 72 year old female with a past medical history of copd, hypercholesterolemia, anemia, thryoid cancer, cad s/p PCI to LAD on Effient, and myocardial infarction who comes into for low hemoglobin. Plan: CBC CMP U/A Protonix Type and Crossmatch 2 units 12/21/17 10:06 Spoke with GI Fellow Dr. Gonzalez. - Medication Orders Current Medication Orders: Discontinued Medications Pantoprazole Sodium (Protonix Inj) 40 mg IVP STAT STA Stop: 12/21/17 09:12 <Nicola Hardy - Last Filed: 12/21/17 11:50> ED Course and Treatment: 12/21/17 10:03 Patient Seen with Resident: In agreement with resident note which contains more details about the patient. Patient seen and evaluated with resident. Came up with plan and treatment tog ether. Impression: 72 year old female who presents to the emergency department with a log hemoglobin of 4. Dr. Patel informed me that she's had several incidences of severe anemia. He wants to rule out a GI bleed. Patient denies bleeding and does not want a rectal exam. Dr. Cheema, Control Clerk Subassembly, came to evaluate patient and agrees that patient is stable for telemetry and no ICU indicated at this time. Case was discussed with Dr. Patel who will admit to his service. Dr. Cagle was consulted for GI. Dr. Gonzalez, GI Fellow came to evaluate patient. - Lab Interpretations Lab Results: 12/21/17 09:25 12/21/17 09:25 Lab Results 12/21/17 09:30: PT 12.3, INR 1.07, APTT 29.6 12/21/17 09:30: Blood Type Pending, Antibody Screen Pending, Crossmatch See Detail, BBK History Checked Patient has bt 12/21/17 09:25: Sodium 142, Potassium 4.5, Chloride 109 H, Carbon Dioxide 24, Anion Gap 14, BUN 23 H, Creatinine 1.1, Est GFR ( Amer) 59, Est GFR (Non- Af Amer) 49, Random Glucose 115 H, Calcium 8.6, Total Bilirubin 0.2, AST 19, ALT 20, Alkaline Phosphatase 84, Total Protein 6.8, Albumin 3.7, Globulin 3.1, Albumin/Globulin Ratio 1.2 12/21/17 09:25: WBC 7.1, RBC 1.81 L, Hgb 4.7 L* D, Hct 16.5 L*, MCV 91.2 D, MCH 26.0, MCHC 28.5 L, RDW 20.5 H, Plt Count 316, MPV 10.0, Gran % 70.1 H, Lymph % (Auto) 18.0 L, Owsley % (Auto) 9.8 H, Eos % (Auto) 1.7, Baso % (Auto) 0.4, Gran # 4.98, Lymph # (Auto) 1.3, Owsley # (Auto) 0.7 H, Eos # (Auto) 0.1, Baso # (Auto) 0.03 - RAD Interpretation Radiology Orders: 12/21/17 09:41 CHEST PORTABLE [RAD] Stat - Medication Orders Current Medication Orders: Discontinued Medications Pantoprazole Sodium (Protonix Inj) 40 mg IVP STAT STA Stop: 12/21/17 09:12 Last Admin: 12/21/17 09:47 Dose: 40 mg IVP Administration Document 12/21/17 09:47 EB (Rec: 12/21/17 09:59 EB [id number]) Charges for Administration # of IVP Administrations 1 <Rian Stern - Last Filed: 12/21/17 12:22> - Scribe Statement The provider has reviewed the documentation as recorded by the Scribe Eliza Zee Provider Scribe Attestation: All medical record entries made by the Scribe were at my direction and personally dictated by me. I have reviewed the chart and agree that the record accurately reflects my personal performance of the history, physical exam, medical decision making, and the department course for this patient. I have also personally directed, reviewed, and agree with the discharge instructions and disposition. <Rian Stern - Last Filed: 12/21/17 12:22> Disposition/Present on Arrival - Present on Arrival Any Indicators Present on Arrival: No History of DVT/PE: No History of Uncontrolled Diabetes: No Urinary Catheter: No History of Decub. Ulcer: No History Surgical Site Infection Following: None - Disposition Have Diagnosis and Disposition been Completed?: Yes Disposition Time: 11:51 <Nicola Hardy - Last Filed: 12/21/17 11:50> <Rian Stern - Last Filed: 12/21/17 12:22> - Disposition Diagnosis: Anemia Disposition: HOSPITALIZED Patient Problems: Current Active Problems Problem Status Onset Anemia Acute Condition: FAIR
[2017-12-21 09:36] LABS: BASO # 0.03 K/mm3 (0.0-2.0); BASO % 0.4 % (0.0-3.0); EOS # 0.1 (0.0-0.7); EOS % 1.7 % (1.5-5.0); GRAN # 4.98 (1.4-6.5); GRAN % 70.1 % (50.0-68.0); LYMPH # 1.3 (1.2-3.4); MEAN CELL VOLUME 91.2 fl (80.0-105.0); MEAN CORPUSCULAR HGB CONC 28.5 g/dl (31.0-37.0); MONO # 0.7 (0.1-0.6); MONO % 9.8 % (1.0-6.0); RBC 1.81 10^6/uL (3.5-6.1); RED CELL DISTRIBUTION WIDTH 20.5 % (11.5-14.5); WHITE BLOOD COUNT 7.1 10^3/uL (4.5-11.0)
[2017-12-21 09:41] LABS: HEMOGLOBIN 4.7 g/dL (12.0-16.0)
[2017-12-21 09:49] LABS: ALB/GLOB RATIO 1.2 (1.1-1.8); ALBUMIN 3.7 g/dL (3.0-4.8); CALCIUM 8.6 mg/dL (8.4-10.5)
[2017-12-21 10:00] LABS: INR 1.07; PARTIAL THROMBOPLASTIN TIME 29.6 Seconds (25.1-36.5); PROTHROMBIN TIME 12.3 SECONDS (9.4-12.5)
--- NOTE | 2017-12-21 12:03 | CP.PCM.CON ---
History of Present Illness - History of Present Illness History of Present Illness: 72F with hx of copd, anemia, thryoid cancer, cad s/p PCI to LAD on Effient, and myocardial infarction sent for anemia on labs by PMD Dr. Patel. She has a hx of anemia requring transfusins in the hospital being worked up. Neg colonscopy and edg she says. She was supposed to have a capsule endo which she refused initially. Patient denies any chest pain, fevers, chills, nausea, vomiting, abdominal pain, black stools, bright red blood per rectum , or any other complaints. PMHx: Thyroid cancer (unknown type), acquired hypothyroidism following thyroid resection PSHx: Partial thyroid resection Social: daily smoker (2-3 cig/day), daily EtOH use (1 glass white wine/day) Past Patient History - Past Social History Smoking Status: Former Smoker - CARDIAC Hx Cardiac Disorders: Yes (CABG, cardiac stent) Hx Heart Attack: Yes Hx Hypertension: Yes - PULMONARY Hx Respiratory Disorders: Yes Hx Bronchitis: Yes - NEUROLOGICAL Hx Neurological Disorder: No - HEENT Hx HEENT Problems: No - RENAL Hx Chronic Kidney Disease: No - ENDOCRINE/METABOLIC Hx Hypothyroidism: Yes - HEMATOLOGICAL/ONCOLOGICAL Hx Anemia: Yes Hx Blood Transfusions: Yes Hx Blood Transfusion Reaction: No - INTEGUMENTARY Hx Dermatological Problems: Yes Other/Comment: shingles - MUSCULOSKELETAL/RHEUMATOLOGICAL Hx Musculoskeletal Disorders: Yes Hx Falls: Yes Hx Spinal Stenosis: Yes - GASTROINTESTINAL Hx Gastrointestinal Disorders: Yes Other/Comment: GI BLEED - GENITOURINARY/GYNECOLOGICAL Hx Genitourinary Disorders: No - PSYCHIATRIC Hx Psychophysiologic Disorder: No Hx Emotional Abuse: No Hx Physical Abuse: No Hx Substance Use: No - SURGICAL HISTORY Hx Cardiac Catheterization: Yes Hx Coronary Stent: Yes (x1) - ANESTHESIA Hx Anesthesia Reactions: No Hx Malignant Hyperthermia: No Meds Allergies/Adverse Reactions: Allergies Allergy/AdvReac Type Severity Reaction Status Date / Time No Known Allergies Allergy Verified 12/21/17 11:46 - Medications Medications: Current Medications Atorvastatin Calcium (Lipitor) 20 mg PO DIN DL Carvedilol (Coreg) 3.125 mg PO BID [facility] Levothyroxine Sodium (Synthroid) 200 mcg PO QAM [facility] Pantoprazole Sodium (Protonix Inj) 40 mg IVP 0600 DL Prasugrel (Effient) 10 mg PO DAILY [facility] Results - Vital Signs Recent Vital Signs: Last Vital Signs Temp 98.7 F 12/21/17 11:36 Pulse 69 12/21/17 11:36 Resp 18 12/21/17 11:36 BP 129/66 12/21/17 11:36 Pulse Ox 100 12/21/17 10:29 - Labs Result Diagrams: 12/21/17 09:25 12/21/17 09:25 Labs: Laboratory Results - last 24 hr 12/21/17 12/21/17 12/21/17 09:25 09:25 09:30 WBC 7.1 RBC 1.81 L Hgb 4.7 L* D Hct 16.5 L* MCV 91.2 D MCH 26.0 MCHC 28.5 L RDW 20.5 H Plt Count 316 MPV 10.0 Gran % 70.1 H Lymph % (Auto) 18.0 L Bennett % (Auto) 9.8 H Eos % (Auto) 1.7 Baso % (Auto) 0.4 Gran # 4.98 Lymph # (Auto) 1.3 Bennett # (Auto) 0.7 H Eos # (Auto) 0.1 Baso # (Auto) 0.03 PT INR APTT Sodium 142 Potassium 4.5 Chloride 109 H Carbon Dioxide 24 Anion Gap 14 BUN 23 H Creatinine 1.1 Est GFR ( Amer) 59 Est GFR (Non-Af Amer) 49 Random Glucose 115 H Calcium 8.6 Total Bilirubin 0.2 AST 19 ALT 20 Alkaline Phosphatase 84 Troponin I Total Protein 6.8 Albumin 3.7 Globulin 3.1 Albumin/Globulin Ratio 1.2 Blood Type A POSITIVE Antibody Screen Negative Crossmatch See Detail BBK History Checked Patient has bt 12/21/17 12/21/17 09:30 09:30 WBC RBC Hgb Hct MCV MCH MCHC RDW Plt Count MPV Gran % Lymph % (Auto) Bennett % (Auto) Eos % (Auto) Baso % (Auto) Gran # Lymph # (Auto) Bennett # (Auto) Eos # (Auto) Baso # (Auto) PT 12.3 INR 1.07 APTT 29.6 Sodium Potassium Chloride Carbon Dioxide Anion Gap BUN Creatinine Est GFR ( Amer) Est GFR (Non-Af Amer) Random Glucose Calcium Total Bilirubin AST ALT Alkaline Phosphatase Troponin I 0.01 D Total Protein Albumin Globulin Albumin/Globulin Ratio Blood Type Antibody Screen Crossmatch BBK History Checked Addendum Addendum: 12/21/17 12:03 72F with anemia unclear etiology. Prior workup did not show bleeding source in the GI tract however I advised to follow thru with GI recs (incld capsule endo ). If this is bleeding, it is likely a slow bleed. She is hymdoynamically stable and can be safely monitored on tele for now does not need MICU at the moment Rec: Transfuse 1 unit PRBC CBC q4 GI consult hematology consult triage to tele for now Discussed with ED Ed Cheema MD Pulmonary Critical Care and Sleep Medicine
--- NOTE | 2017-12-21 13:06 | RAD ---
Date of service: 12/21/2017 HISTORY: sob COMPARISON: 10/26/2017 FINDINGS: LUNGS: No active pulmonary disease. PLEURA: No significant pleural effusion identified, no pneumothorax apparent. CARDIOVASCULAR: No aortic atherosclerotic calcification present. Moderate cardiomegaly no pulmonary vascular congestion. OSSEOUS STRUCTURES: No significant abnormalities. VISUALIZED UPPER ABDOMEN: Normal. OTHER FINDINGS: None. IMPRESSION: No active disease.
--- NOTE | 2017-12-21 13:36 | HP ---
DATE OF EXAM: 12/21/2017 HISTORY OF PRESENT ILLNESS: I have been seeing her for many years. She had a blood test on the outpatient and I had a call this morning at 05:00 a.m. that the hemoglobin was 4.9. She had done this before and she had transfusions and she sees Gastroenterology. I called her up and sent her to the emergency room. She is a 72-year-old white female who I saw in the emergency room this morning with a very low hemoglobin of 4.7 now in the emergency room. She is very tired and also short of breath. PAST MEDICAL HISTORY: She has a past medical history of COPD, high cholesterol, anemia, thyroid cancer, coronary artery disease status post PCI to the LAD, on Effient and myocardial infarction history who is now quite anemic and we can transfuse, we will have a consult with GI and motion study engineer. She has a past medical history of thyroid cancer, acquired hypothyroidism following partial thyroid resection. ALLERGIES: SHE HAS NO KNOWN DRUG ALLERGIES. REVIEW OF SYSTEMS: She has no acute vision or hearing changes. No chest pain. There is some shortness of breath. No cough. No abdominal pain. No nausea, vomiting, constipation, diarrhea. No black stools. No extremity swelling. She can move all four extremities well. She has had CABG, cardiac stents, hypertension, bronchitis in the past. She has had blood transfusions in the past. She has had shingles. She has had falls. She has spinal stenosis. She had one coronary stent placed. FAMILY HISTORY: No known family history. SOCIAL HISTORY: Former smoker but she does smoke two to three cigarettes a day. Social alcohol. No drugs. MEDICATIONS: She is on Effient, Synthroid, a few other medications. REVIEW OF SYSTEMS: She is very tired. No vision or hearing changes. No shortness of breath. No cough. No chest pain or palpitations. No abdominal pain, nausea, vomiting, constipation, diarrhea. She remains well. No skin issues or itchiness. No headache or dizziness. No sweating. No swollen glands, not anxious or depressed. PHYSICAL EXAMINATION: VITAL SIGNS: She has a 98.1 temperature, 84 pulse, 18 respiratory rate, 131/80 blood pressure, 99% O2 sat on room air. HEENT: Her head is atraumatic, normocephalic. Well appearing, nontoxic, comfortable, alert and oriented x3, not confused, very calm at rest on the gurney in the emergency room. HEENT: Head is atraumatic, normocephalic. Extraocular muscles are intact. Pupils equally reactive to light and accommodation. Throat is moist. NECK: Supple. No JVD. Good range of motion. LUNGS: Decreased breath sounds but clear to auscultation bilaterally. No wheezes, rhonchi or rales. HEART: Regular rate. Normal S1, S2. ABDOMEN: Soft, nontender. Positive bowel sounds. No guarding, no rebound or CVA tenderness. Normal abdominal exam. RECTAL: She refused a rectal exam in the ER. EXTREMITIES: No edema in the legs. GCS is 15. NEUROLOGIC: Cranial nerves II-XII grossly intact. Thyroid midline. Alert and oriented x3. LYMPH: She has no palpable lymphadenopathy. SKIN: Warm and dry. LABORATORY DATA: She had multiple tests. She has a 142 sodium, potassium 4.5, BUN is 23, creatinine 1.1, GFR is 49, sugar is 115, calcium is 8.6, total bili is 0.2, AST is 19, ALT is 20, alk phos is 84. Troponin I is 0.01, total protein 6.8, albumin is 3.7. INR is 1.07. White count 7.1, hemoglobin 4.7, hematocrit 16.5, platelets are 316. Chest x-ray is pending. She is going to get 2 units of packed red blood cells and consult with GI and Cardiology, should be put back on Coreg or Effient or Lipitor, Protonix IV and Synthroid. We are going to check her labs tomorrow. She might need more than 2 units of packed red blood cells. We will see. I will see with GI and cardio has to help us with this and she is here for acute bleeding probably blood loss anemia. Jasvir Patel DO
--- NOTE | 2017-12-21 14:28 | CP.PCM.CON ---
<Mirella Gonzalez - Last Filed: 12/21/17 14:23> History of Present Illness - History of Present Illness History of Present Illness: Gastroenterology/Fellow PGY6 Consult Note 72 year old female with PMH chronic iron deficiency anemia requiring blood transfusions, thyroid cancer s/p resection, CAD s/p stents (on ASA/Effient), and COPD presenting with referral from PCP for low hemoglobin. Patient notes feeling weak and short of breath for over a week. Notes daily formed stools of green to brown in color. Admits to acid reflux and heartburn. Denies nausea, vomiting, hematemesis, abdominal pain, diarrhea, constipation, melena, hematochezia, or unintentional weight loss. Denies recent NSAIDs use. Recent EGD and colonoscopy 10/31/17 showed gastritis, descending/sigmoid diverticulosis, and small internal hemorrhoids. Family History- denies stomach cancer, colon cancer Social History- daily 4-6 ounce cocktail for last 18 months; quit tobacco two years ago, denies illicit drug use Surgical History- thyroid resection, cardiac cath Review of Systems - Review of Systems Review of Systems: 12-point review of systems negative except for as above Past Patient History - Past Social History Smoking Status: Former Smoker - CARDIAC Hx Cardiac Disorders: Yes (CABG, cardiac stent) Hx Heart Attack: Yes Hx Hypertension: Yes - PULMONARY Hx Respiratory Disorders: Yes Hx Bronchitis: Yes - NEUROLOGICAL Hx Neurological Disorder: No - HEENT Hx HEENT Problems: No - RENAL Hx Chronic Kidney Disease: No - ENDOCRINE/METABOLIC Hx Hypothyroidism: Yes - HEMATOLOGICAL/ONCOLOGICAL Hx Anemia: Yes Hx Blood Transfusions: Yes Hx Blood Transfusion Reaction: No - INTEGUMENTARY Hx Dermatological Problems: Yes Other/Comment: shingles - MUSCULOSKELETAL/RHEUMATOLOGICAL Hx Musculoskeletal Disorders: Yes Hx Falls: Yes Hx Spinal Stenosis: Yes - GASTROINTESTINAL Hx Gastrointestinal Disorders: Yes Other/Comment: GI BLEED - GENITOURINARY/GYNECOLOGICAL Hx Genitourinary Disorders: No - PSYCHIATRIC Hx Psychophysiologic Disorder: No Hx Emotional Abuse: No Hx Physical Abuse: No Hx Substance Use: No - SURGICAL HISTORY Hx Cardiac Catheterization: Yes Hx Coronary Stent: Yes (x1) - ANESTHESIA Hx Anesthesia Reactions: No Hx Malignant Hyperthermia: No Meds Allergies/Adverse Reactions: Allergies Allergy/AdvReac Type Severity Reaction Status Date / Time No Known Allergies Allergy Verified 12/21/17 11:46 - Medications Medications: Current Medications Atorvastatin Calcium (Lipitor) 20 mg PO DIN DL Carvedilol (Coreg) 3.125 mg PO BID DL Levothyroxine Sodium (Synthroid) 200 mcg PO QAM DL Pantoprazole Sodium (Protonix Inj) 40 mg IVP 0600 [facility] Physical Exam - Constitutional Appears: Non-toxic, No Acute Distress - Head Exam Head Exam: ATRAUMATIC, NORMOCEPHALIC - Eye Exam Eye Exam: EOMI, PERRL. absent: Scleral icterus Pupil Exam: PERRL. absent: Miosis, Mydriatic - ENT Exam ENT Exam: Mucous Membranes Moist, Normal Oropharynx - Neck Exam Neck exam: Positive for: Full Rom, Normal Inspection - Respiratory Exam Respiratory Exam: Clear to Auscultation Bilateral. absent: Rales, Rhonchi, Wheezes - Cardiovascular Exam Cardiovascular Exam: RRR, +S1, +S2. absent: Gallop, Rubs - GI/Abdominal Exam GI & Abdominal Exam: Normal Bowel Sounds, Soft. absent: Distended, Firm, Guarding, Organomegaly, Rebound, Rigid, Tenderness - Rectal Exam Additional comments: patient refused rectal exam - Extremities Exam Extremities exam: Positive for: normal inspection. Negative for: pedal edema - Neurological Exam Neurological exam: Alert, Oriented x3 - Psychiatric Exam Psychiatric exam: Normal Affect, Normal Mood - Skin Skin Exam: Dry, Intact, Normal Color, Warm Results - Vital Signs Recent Vital Signs: Last Vital Signs Temp 98.4 F 12/21/17 14:04 Pulse 86 12/21/17 14:04 Resp 18 12/21/17 14:04 BP 147/75 12/21/17 14:04 Pulse Ox 100 12/21/17 12:37 - Labs Result Diagrams: 12/21/17 09:25 12/21/17 09:25 Labs: Laboratory Results - last 24 hr 12/21/17 12/21/17 12/21/17 09:25 09:25 09:30 WBC 7.1 RBC 1.81 L Hgb 4.7 L* D Hct 16.5 L* MCV 91.2 D MCH 26.0 MCHC 28.5 L RDW 20.5 H Plt Count 316 MPV 10.0 Gran % 70.1 H Lymph % (Auto) 18.0 L [place] % (Auto) 9.8 H Eos % (Auto) 1.7 Baso % (Auto) 0.4 Gran # 4.98 Lymph # (Auto) 1.3 [place] # (Auto) 0.7 H Eos # (Auto) 0.1 Baso # (Auto) 0.03 PT INR APTT Sodium 142 Potassium 4.5 Chloride 109 H Carbon Dioxide 24 Anion Gap 14 BUN 23 H Creatinine 1.1 Est GFR ( Amer) 59 Est GFR (Non-Af Amer) 49 Random Glucose 115 H Calcium 8.6 Total Bilirubin 0.2 AST 19 ALT 20 Alkaline Phosphatase 84 Troponin I Total Protein 6.8 Albumin 3.7 Globulin 3.1 Albumin/Globulin Ratio 1.2 Blood Type A POSITIVE Antibody Screen Negative Crossmatch See Detail BBK History Checked Patient has bt 12/21/17 12/21/17 09:30 09:30 WBC RBC Hgb Hct MCV MCH MCHC RDW Plt Count MPV Gran % Lymph % (Auto) [place] % (Auto) Eos % (Auto) Baso % (Auto) Gran # Lymph # (Auto) [place] # (Auto) Eos # (Auto) Baso # (Auto) PT 12.3 INR 1.07 APTT 29.6 Sodium Potassium Chloride Carbon Dioxide Anion Gap BUN Creatinine Est GFR ( Amer) Est GFR (Non-Af Amer) Random Glucose Calcium Total Bilirubin AST ALT Alkaline Phosphatase Troponin I 0.01 D Total Protein Albumin Globulin Albumin/Globulin Ratio Blood Type Antibody Screen Crossmatch BBK History Checked Assessment & Plan - Assessment and Plan (Free Text) Assessment: 72 year old female with PMH chronic iron deficiency anemia requiring blood transfusions, thyroid cancer s/p resection, CAD s/p stents (on ASA/Effient), and COPD presenting with referral from PCP for low hemoglobin. Active treatment of symptomatic anemia in setting of recurrent acute on chronic anemia requiring blood transfusions. Recent EGD and colonoscopy 10/31/17 showed gastritis, descending/sigmoid diverticulosis, and small internal hemorrhoids. Plan: -recent EGD and colonoscopy 10/31/17- showed no signs of acute GI bleed -present evaluation-no signs of overt GI bleed -low suspicion for upper or lower GI bleed given recent endoscopic evaluations -okay to resume aspirin given patient's cardiac history as discussed with attending -recommend Hematology consultation -patient to receive 2U pRBCs -serial H/H -provide additional transfusion for Hb goal> 8 -advance to heart healthy diet -continue Protonix PO ACB -avoid NSAIDs -patient counselled on prior admissions, 01/2016 and 10/2017,for outpatient follow up for capsule endoscopy to evaluate small intestine for signs of active GI bleed leading to occult a nemia -patient confirms she did not follow up on recommendation -patient counselled/educated on recommendation for outpatient capsule endoscopy immediately upon discharge for further workup -will follow clinical course <[email or web address] - Last Filed: 12/21/17 17:12> Meds - Medications Medications: Current Medications Atorvastatin Calcium (Lipitor) 20 mg PO DIN [facility] Last Admin: 12/21/17 17:06 Dose: 20 mg Carvedilol (Coreg) 3.125 mg PO BID [facility] Last Admin: 12/21/17 17:06 Dose: 3.125 mg Levothyroxine Sodium (Synthroid) 200 mcg PO QAM DL Pantoprazole Sodium (Protonix Inj) 40 mg IVP 0600 [facility] Results - Vital Signs Recent Vital Signs: Last Vital Signs Temp 98.4 F 12/21/17 16:20 Pulse 79 12/21/17 17:06 Resp 16 12/21/17 16:20 BP 148/83 12/21/17 17:06 Pulse Ox 100 12/21/17 12:37 - Labs Result Diagrams: 12/21/17 09:25 12/21/17 09:25 Labs: Laboratory Results - last 24 hr 12/21/17 12/21/17 12/21/17 09:25 09:25 09:30 WBC 7.1 RBC 1.81 L Hgb 4.7 L* D Hct 16.5 L* MCV 91.2 D MCH 26.0 MCHC 28.5 L RDW 20.5 H Plt Count 316 MPV 10.0 Gran % 70.1 H Lymph % (Auto) 18.0 L [place] % (Auto) 9.8 H Eos % (Auto) 1.7 Baso % (Auto) 0.4 Gran # 4.98 Lymph # (Auto) 1.3 [place] # (Auto) 0.7 H Eos # (Auto) 0.1 Baso # (Auto) 0.03 PT INR APTT Sodium 142 Potassium 4.5 Chloride 109 H Carbon Dioxide 24 Anion Gap 14 BUN 23 H Creatinine 1.1 Est GFR ( Amer) 59 Est GFR (Non-Af Amer) 49 Random Glucose 115 H Calcium 8.6 Total Bilirubin 0.2 AST 19 ALT 20 Alkaline Phosphatase 84 Troponin I Total Protein 6.8 Albumin 3.7 Globulin 3.1 Albumin/Globulin Ratio 1.2 Blood Type A POSITIVE Antibody Screen Negative Crossmatch See Detail BBK History Checked Patient has bt 12/21/17 12/21/17 09:30 09:30 WBC RBC Hgb Hct MCV MCH MCHC RDW Plt Count MPV Gran % Lymph % (Auto) [place] % (Auto) Eos % (Auto) Baso % (Auto) Gran # Lymph # (Auto) [place] # (Auto) Eos # (Auto) Baso # (Auto) PT 12.3 INR 1.07 APTT 29.6 Sodium Potassium Chloride Carbon Dioxide Anion Gap BUN Creatinine Est GFR ( Amer) Est GFR (Non-Af Amer) Random Glucose Calcium Total Bilirubin AST ALT Alkaline Phosphatase Troponin I 0.01 D Total Protein Albumin Globulin Albumin/Globulin Ratio Blood Type Antibody Screen Crossmatch BBK History Checked Attending/Attestation - Attestation I have fully participated in the care of the patient.: Yes I have reviewed all pertinent clinical information: Yes Notes (Text): 12/21/17 17:10 Iron deficiency anemia History of thyroid cancer CAD s/p stent on effient COPD Fatigue, progressive anemia - Advance diet as tolerated - Continue to monitor H/H s/p PRBC transfusion, no presence of overt GI bleeding noted - Suggest hematology evaluation for non-GI workup of anemia - Patient with recent EGD/colonoscopy 6 weeks ago showing gastritis, diverticulosis, internal hemorrhoids - Patient would benefit from outpatient capsule endoscopy for further small bowel evaluation given progressive anemia - Will continue to monitor patient clinical course
--- NOTE | 2017-12-21 14:46 | CON ---
DATE: 12/21/2017 HISTORY: The patient is 72-year-old woman, who presents with general malaise. She was found have a hemoglobin of 4. The patient's past medical history includes a history of hypothyroidism, chronic anemia. GI workup in the past. According to the patient, it has been negative in terms of endoscopy and colonoscopy. The patient's cardiac history includes PTCA and stent of a 95% proximal LAD in the past. She has documented occluded RCA in the past. She denies dark stools. SOCIAL HISTORY: The patient denies smoking, although she is a previous smoker. REVIEW OF SYSTEMS: A 14-point review of systems is reviewed in detail. No angina. No dyspnea. No edema. She does complain of lower back pain. PHYSICAL EXAMINATION: VITAL SIGNS: Blood pressure is 139/75, the heart rate is in the 60s. NECK: Negative JVD. LUNGS: Without rales. HEART: Heart rate S1, S2. EXTREMITIES: Without edema. EKG is not available. However, there are no ST changes on telemetry, although occasional PVCs. IMPRESSION: 1. Marked anemia. 2. Need to rule out acute gastrointestinal bleed on top of her chronic anemia. 3. Multivessel coronary artery disease including drug-eluting stent in the proximal LAD. 4. Occluded RCA. 5. Chronic obstructive pulmonary disease. 6. Hypercholesterolemia. PLAN: Given these findings, the patient will need packed red blood cells transfusions as soon as possible. We will need to discontinue her Effient and aspirin. GI consult has been called. We need to find whether there is any acute bleed as soon as possible and see whether we can restart the patient on a baby aspirin to protect her LAD stent. Quentin Wood MD
[2017-12-21] MEDS ORDERED: Pneumococcal 23-Valent Vaccine IM ONE (16:25)
[2017-12-21] MEDS ORDERED: Influenza Vaccine 60 mcg/0.5 mL SYR (4YR UP) IM ONE (16:25)
--- NOTE | 2017-12-21 19:11 | CARD ---
APPROVED REPORT Date of service: 12/21/2017 EKG Measurement Heart [id number] <Conclusion> Normal sinus rhythm Minimal voltage criteria for LVH, may be normal variant Inferior infarct, age undetermined Abnormal ECG
[2017-12-22] MEDS ORDERED: Pantoprazole 40mg/100mL NS 40 MG/100 ML BAG IVPB SCH (06:00)
[2017-12-22 07:00] LABS: MEAN CELL VOLUME 88.1 fl (80.0-105.0); MEAN CORPUSCULAR HGB CONC 30.7 g/dl (31.0-37.0); MEAN PLATELET VOLUME 10.9 fl (7.0-11.0); RBC 2.85 10^6/uL (3.5-6.1); RED CELL DISTRIBUTION WIDTH 18.3 % (11.5-14.5); WHITE BLOOD COUNT 6.9 10^3/uL (4.5-11.0)
[2017-12-22 07:22] LABS: HEMOGLOBIN 7.7 g/dL (12.0-16.0)
[2017-12-22 07:29] LABS: ALB/GLOB RATIO 1.1 (1.1-1.8); ALBUMIN 3.7 g/dL (3.0-4.8); ALT/SGPT 21 U/L (7-56); AST/SGOT 27 U/L (14-36); BLOOD UREA NITROGEN 19 mg/dL (7-21); CALCIUM 8.8 mg/dL (8.4-10.5); GFR NON-AFRICAN AMERICAN 54
--- NOTE | 2017-12-22 08:25 | PN ---
DATE: 12/22/2017 SUBJECTIVE: She came in yesterday, she is little short of breath with a 4.7 hemoglobin, transfused 2 units of packed red blood cells. She is also little bit better this morning. She does have a drug-eluting stent and CAD and Dr. Quentin Wood and he would like to have GI do an endoscopy or look today to make sure she is not bleeding before he puts her back on Effient. I discussed that with the GI fellow to see if they can do that today. She is comfortable in bed, still not 100%, still short of breath. OBJECTIVE: VITAL SIGNS: 98.6 temperature, 98 pulse, 141/84 blood pressure, 20 respiratory rate, 99% O2 sat on room air. HEENT: Head: Atraumatic, normocephalic. Throat is moist. NECK: Supple. HEART: Regular rate. LUNGS: Decreased breath sounds but clear. ABDOMEN: Soft, nontender. Positive bowel sounds. EXTREMITIES: No edema. She is not seeing any blood or any enema, but we will check the stools for occult blood. MEDICATIONS: She is currently on Coreg, Lipitor, Protonix and Synthroid. LABORATORY DATA: She has 141 sodium, potassium 4.2, BUN 90, creatinine 1, GFR is 54, all better. Sugar was 103, calcium is 8.8. Total bili is 1.2, AST is 27, ALT is 21, alk phos 88. Troponin I is 0.01. Total protein 7, INR is 1.07. White count, 6.9 hemoglobin went from 4.7 to 7.7 and likely to be above 10. I have given her 2 more units of packed red blood cells today. Hematocrit 25.1, platelets of 356,000. She is being seen by GI and Cardiology and hoping we can get GI to do a procedure today to make sure she is safe to go back on the Effient. Chest x-ray was clean. Her regular medications are levothyroxine, atorvastatin, Effient, aspirin and right now it is on hold due to GI bleeding and anemia down to 4. Continue with aggressive treatment and care. Hopefully, I can do a procedure today to find out she is bleeding or not. Then, we can put her back on Effient. She was given 2 more units of packed red blood cells today with anemia down to 4. Jasvir Patel DO [facility] # [id number]
--- NOTE | 2017-12-22 08:40 | CP.PCM.PN ---
Subjective - Date & Time of Evaluation Date of Evaluation: 12/22/17 Time of Evaluation: 08:38 - Subjective Subjective: Gastroenterology Fellow/PY6 Progress Note Patient feels well. Tolerating regular diet. Notes formed stool without melena or hematochezia yesterday. A 12-point review of systems negative except for as above. Objective - Vital Signs/Intake and Output Vital Signs (last 24 hours): Temp Pulse Resp BP Pulse Ox 98.6 F 98 H 20 141/84 99 12/22/17 06:00 12/22/17 06:00 12/22/17 06:00 12/22/17 06:00 12/22/17 00:01 Intake and Output: 12/22/17 12/22/17 06:59 18:59 Intake Total 480 Balance 480 - Medications Medications: Current Medications Atorvastatin Calcium (Lipitor) 20 mg PO DIN [facility] Last Admin: 12/21/17 17:06 Dose: 20 mg Carvedilol (Coreg) 3.125 mg PO BID [facility] Last Admin: 12/21/17 17:06 Dose: 3.125 mg Levothyroxine Sodium (Synthroid) 200 mcg PO QAM [facility] Pantoprazole Sodium (Protonix Inj) 40 mg IVP 0600 [facility] Last Admin: 12/22/17 05:26 Dose: 40 mg - Labs Labs: 12/22/17 06:00 12/22/17 06:00 PT 12.3 SECONDS (9.4-12.5) 12/21/17 09:30 INR 1.07 12/21/17 09:30 APTT 29.6 Seconds (25.1-36.5) 12/21/17 09:30 - Constitutional Appears: Non-toxic, No Acute Distress - Head Exam Head Exam: ATRAUMATIC, NORMOCEPHALIC - Eye Exam Eye Exam: EOMI, PERRL. absent: Scleral icterus Pupil Exam: PERRL. absent: Miosis, Mydriatic - ENT Exam ENT Exam: Mucous Membranes Moist, Normal Oropharynx - Neck Exam Neck Exam: Full ROM, Normal Inspection - Respiratory Exam Respiratory Exam: Clear to Ausculation Bilateral. absent: Rales, Rhonchi, Wheezes - Cardiovascular Exam Cardiovascular Exam: RRR, +S1, +S2. absent: Gallop, Rubs - GI/Abdominal Exam GI & Abdominal Exam: Soft, Normal Bowel Sounds. absent: Distended, Firm, Guarding, Rigid, Tenderness, Organomegaly, Rebound - Extremities Exam Extremities Exam: Normal Inspection. absent: Pedal Edema - Neurological Exam Neurological Exam: Alert, Awake - Psychiatric Exam Psychiatric exam: Normal Affect, Normal Mood - Skin Skin Exam: Dry, Intact, Normal Color, Warm Assessment and Plan - Assessment and Plan (Free Text) Assessment: 72 year old female with PMH chronic iron deficiency anemia requiring blood transfusions, thyroid cancer s/p resection, CAD s/p stents (on ASA/Effient), and COPD presenting with referral from PCP for low hemoglobin. Active treatment of symptomatic anemia in setting of recurrent acute on chronic anemia requiring blood transfusions. Recent EGD and colonoscopy 10/31/17 showed gastritis, juan luis cending/sigmoid diverticulosis, and small internal hemorrhoids. Plan: -no signs of overt GI bleed -recommend Hematology consultation -ordered to receive additional pRBC today -12/21 received 2U pRBCs -continue heart healthy diet -continue Protonix PO ACB -avoid NSAIDs -plan for anticoagulation per cardiology recommendation of risk versus benefit -will re-assess tomorrow for possible endoscopic evaluation -will benefit from outpatient capsule endoscopy immediately upon discharge for further workup of anemia -discussed with attending -will follow clinical course
[2017-12-22] MEDS: Levothyroxine 200 MCG TAB PO SCH (09:38)
[2017-12-23 03:24] LABS: HEMOGLOBIN 8.9 g/dL (12.0-16.0); MEAN CELL VOLUME 88.3 fl (80.0-105.0); MEAN CORPUSCULAR HEMOGLOBIN 27.5 pg (25.0-35.0); MEAN CORPUSCULAR HGB CONC 31.1 g/dl (31.0-37.0); MEAN PLATELET VOLUME 10.5 fl (7.0-11.0); RBC 3.24 10^6/uL (3.5-6.1); RED CELL DISTRIBUTION WIDTH 17.6 % (11.5-14.5); WHITE BLOOD COUNT 6.7 10^3/uL (4.5-11.0)
[2017-12-23 03:31] LABS: ALB/GLOB RATIO 1.2 (1.1-1.8); ALBUMIN 3.7 g/dL (3.0-4.8); CALCIUM 8.7 mg/dL (8.4-10.5)
[2017-12-23] MEDS ORDERED: Pantoprazole 40 mg EC Tab PO SCH (06:00)
[2017-12-23] MEDS ORDERED: Propofol 10 mg/ml Inj (20 ML) ONE (09:12)
--- NOTE | 2017-12-23 09:36 | CP.PCM.PN ---
Subjective - Date & Time of Evaluation Date of Evaluation: 12/23/17 Time of Evaluation: 09:33 - Subjective Subjective: Patient seen and examined, no acute events overnight. She is seen resting in bed comfortably, denies abdominal pain, nausea, vomiting, fever/chills, or melena/hematochezia. Review of vitals from today are normal. s/p EGD today showing gastritis, hiatal hernia. Objective - Vital Signs/Intake and Output Vital Signs (last 24 hours): Temp Pulse Resp BP Pulse Ox 98.7 F 61 12 138/70 98 12/23/17 07:36 12/23/17 08:51 12/23/17 08:51 12/23/17 08:51 12/23/17 08:51 Intake and Output: 12/23/17 12/23/17 06:59 18:59 Intake Total 15 340 Balance 15 340 - Medications Medications: Current Medications Aspirin (Ecotrin) 81 mg PO DAILY [facility] Atorvastatin Calcium (Lipitor) 20 mg PO DIN [facility] Last Admin: 12/22/17 17:16 Dose: 20 mg Carvedilol (Coreg) 3.125 mg PO BID [facility] Last Admin: 12/22/17 17:16 Dose: 3.125 mg Sodium Chloride (Sodium Chloride 0.9%) 1,000 mls @ 100 mls/hr IV .Q10H [facility] Levothyroxine Sodium (Synthroid) 200 mcg PO QAM [facility] Last Admin: 12/22/17 09:38 Dose: 200 mcg Pantoprazole Sodium (Protonix Ec Tab) 40 mg PO 0600 [facility] Last Admin: 12/23/17 08:02 Dose: Not Given - Labs Labs: 12/23/17 03:08 12/23/17 03:08 PT 12.3 SECONDS (9.4-12.5) 12/21/17 09:30 INR 1.07 12/21/17 09:30 APTT 29.6 Seconds (25.1-36.5) 12/21/17 09:30 Assessment and Plan - Assessment and Plan (Free Text) Assessment: CAD s/p PCI on effient (held) Symptomatic anemia COPD History of thyroid cancer Plan: - Advance diet as tolerated - H/H stable s/p PRBC transfusion, continue to monitor - Awaiting hematology evaluation for non-GI workup of ongoing anemia - Follow up EGD biopsy results - From GI perspective ok to resume aspirin given cardiac risk factors, follow up cardiac recommendations - No evidence of active or recent GI bleeding on EGD performed today - Patient would benefit from outpatient capsule endoscopy for additional small b owel evaluation - No further planned GI intervention, will sign off case. Please reconsult as necessary, thank you.
[2017-12-23] MEDS ORDERED: Sodium Chloride 0.9% 1,000 ML IV SCH (09:45)
[2017-12-23 10:13] LABS: IRON 35 ug/dL (45-180)
[2017-12-23] MEDS: Levothyroxine 200 MCG TAB PO SCH (10:21)
[2017-12-23 10:22] LABS: % IRON SATURATION 10 % (20-55); TOTAL IRON BINDING CAPACITY 367 ug/dL (265-497)
[2017-12-23 10:33] VITALS: O2SAT 96
--- NOTE | 2017-12-23 11:49 | PN ---
DATE: 12/23/2017 CARDIOLOGY FOLLOWUP SUBJECTIVE: The patient tolerated endoscopy. No evidence for active bleeding. PHYSICAL EXAMINATION: VITAL SIGNS: Blood pressure 140/69, heart rate in the 60s. NECK: Negative JVD. LUNGS: Without rales. HEART: S1, S2. EXTREMITIES: Without edema. LABORATORY DATA: Hemoglobin is 8.9. Chemistries, BUN and creatinine unremarkable. IMPRESSION: 1. Status post marked anemia. 2. No evidence for acute gastrointestinal bleed. 3. History of percutaneous transluminal coronary angioplasty and stent in 2015. 4. Hypercholesterolemia. Given these findings, the patient's cardiac status is doing well. We will DC the Effient. She will continue on a baby aspirin. Follow up her hemoglobin can be done as an outpatient. I will arrange for an outpatient stress test on the patient. I have discussed with the patient about the need for careful followup. Quentin Wood MD
[2017-12-23 12:14] VITALS: BP 119/66; PULSE 62; RESP 18; TEMP 97.8
--- NOTE | 2017-12-23 13:07 | HP ---
DATE OF EXAM: 12/23/2017 DISCHARGE SUMMARY HISTORY OF PRESENT ILLNESS: She had an upper endoscopy with GI that was normal. So she can take I believe aspirin products. She is on Coreg, aspirin is on hold, Ecotrin 81 mg, Venofer infusion by Dr. Stephen, Lipitor, Protonix, IV fluids and levothyroxine. PHYSICAL EXAMINATION: VITAL SIGNS: She has 98.7 temperature, 60 pulse, 140/69 blood pressure, 12 respiratory rate, 99% O2 sat on nasal cannula. HEENT: Head is atraumatic, normocephalic. HEART: Regular rate. LUNGS: Clear to auscultation. ABDOMEN: Soft and nontender. Positive bowel sounds. EXTREMITIES: No edema. She is comfortable. I am hoping that she can be discharged. Dr. Wood to evaluate her medications before she leaves. LABORATORY DATA: She has a 6.7 white count, hemoglobin was 8.9 after 4 units of packed red blood cells, hematocrit is 28.6, platelets 346,000. She has iron infusing by Hematology. Sodium 139, potassium of 4.2, BUN 19, creatinine 1.2, GFR is 40, blood sugar is 102, calcium is 8.7, total bili is 0.7, AST is 36, ALT is 16, alk phos is 85. Troponin I is 0.01. Total protein is 6.7. PLAN: So waiting for the type written report from Hematology. I am hoping she can be discharged this afternoon. It could be iron-deficiency anemia with iron infusion. She has CAD and hopefully she will do very well. Jasvir Patel DO
--- NOTE | 2017-12-23 15:43 | CON ---
DATE: 12/23/2017 HISTORY OF PRESENT ILLNESS: This is a 72-year-old woman with severe anemia; cigarettes, negative for 2 years; alcohol, 1 Martini per night. The patient was in before for weakness, tiredness, dizziness, and had a hemoglobin of 4.7 on admission. She denies any change in bowel habits, constipation, diarrhea. No melena. No change in the stool color. PHYSICAL EXAMINATION: SKIN: No lesion. No petechiae. No telangiectasia. No bruises. HEENT: Anicteric and no mucosal lesions noted. NODES: None palpable in the axillary, cervical, supraclavicular, or inguinal regions. LUNGS: Clear at present. No vertebral tenderness. BREASTS: No mass, discharge, or dimpling. HEART: S1 and S2. ABDOMEN: Shows no liver, no spleen, no tenderness. EXTREMITIES: No edema. STEEL LAYER: No focal finding. ASSESSMENT: The patient presented 2 years ago. She had severe shortness of breath and was found to have severe anemia with an acute myocardial infarction. She received 2 units of blood then. She states she always has an anemia, and she takes iron periodically, but about 2 months ago, she was admitted to the hospital and got 2 units of blood, and again, this time came in with 4 units of packed cells. She feels a lot better now. She was seen by Dr. Malagon, the GI consult, and he did an upper endoscopy and colonoscopy and did not find any obvious source of bleeding and suggested an outpatient capsule endoscopy for additional testing, which will be done I suppose on his scheduling. The medications that she takes are carvedilol, Coreg, aspirin, iron, Lipitor, Protonix, and Synthroid. Her laboratory test showed her hemoglobin came up from 4.7 to 8.9 and an iron level that is low at 35 with a saturation of 10%. I gave her an IV iron, Venofer and I will see her in 2 weeks in the office to reevaluate the anemia. The other issue is that her TSH was 30, it is quite high. I ordered a T3 and T4. We will see if may be that does not contribute to the anemia as well in terms of hypothyroid. So, she is going to see me in 2 weeks in the office. She lives 2 blocks away from me. Amos Stephen MD
[2017-12-23 17:45] LABS: T4 4.6 ug/dL (5.5-11.0)
[2017-12-23 17:59] LABS: T3 0.69 ng/mL (0.97-1.69)
== END 2017-12-23 16:07 | disposition home or self-care (01) | DRG 812 ==
LOC: ED 08:28 → ERH 10:18 → 2RNO 11:56
PROVIDERS: ADMIT Family Medicine; ATTEND Family Medicine
PROC: 30233N1 Transfusion of Nonautologous Red Blood Cells into Peripheral Vein, Percutaneous Approach (ICD-10-PCS; principal; 2017-12-21)
PROC: 0DB68ZX Excision of Stomach, Via Natural or Artificial Opening Endoscopic, Diagnostic (ICD-10-PCS; 2017-12-23)
DX: D50.9 Iron deficiency anemia, unspecified (principal); J44.9 Chronic obstructive pulmonary disease, unspecified; I25.10 Atherosclerotic heart disease of native coronary artery without angina pectoris; E78.00 Pure hypercholesterolemia, unspecified; F17.210 Nicotine dependence, cigarettes, uncomplicated; I10 Essential (primary) hypertension; E89.0 Postprocedural hypothyroidism; K21.9 Gastro-esophageal reflux disease without esophagitis; K29.70 Gastritis, unspecified, without bleeding; K44.9 Diaphragmatic hernia without obstruction or gangrene; K64.8 Other hemorrhoids; I25.2 Old myocardial infarction; Z85.850 Personal history of malignant neoplasm of thyroid; Z95.5 Presence of coronary angioplasty implant and graft; Z95.1 Presence of aortocoronary bypass graft

== ENCOUNTER 2018-06-23 07:53 | Outpatient (CLI) | payer MEDICARE, BC | END 2018-06-23 07:54 | disposition home or self-care (01) | LOC: ONC 07:53 ==